=== PATIENT | male | born 1995 | race Caucasian/White ===

== ENCOUNTER → 2016-09-19 | Outpatient (CLI) | payer BC, OTHER | LOC: MRI 07:13 | DX: M23.91 Unspecified internal derangement of right knee (principal); M25.561 Pain in right knee ==

== ENCOUNTER 2016-11-17 06:08 | Day surgery (SDC) | payer BC, OTHER ==
[~2016-11-17] VITALS: Ht 177.8 cm; Wt 74.8 kg
--- NOTE | ~2016-11-17 | O ---
[facility] [place] [address] OPERATIVE REPORT Name: LALA SILVA Room #: DEP [facility].#: [id number] Admission: 11/17/16 Attend Phys: Lito Quijano MD Discharge: 11/17/16 Date of : 89 Report #: [id number] THIS REPORT FOR: //name// CC: Lito Quijano [facility] DATE OF SERVICE: 11/17/2016 SERVICE: Orthopedics. FACILITY: [facility]. SURGEON: Lito Quijano M.D. AUTOMOTIVE BRAKE ADJUSTER: None. PREOPERATIVE DIAGNOSES: 1. Right knee anterior cruciate ligament rupture. 2. Displaced bucket handle medial meniscus tear, right knee. 3. Radial tear, right lateral meniscus. POSTOPERATIVE DIAGNOSES: 1. Right knee anterior cruciate ligament rupture. 2. Displaced bucket handle medial meniscus tear, right knee. 3. Radial tear, right lateral meniscus. PROCEDURE: 1. Right knee anterior cruciate ligament reconstruction with quadriceps tendon autograft. 2. Right knee partial medial meniscectomy. 3. Right knee partial lateral meniscectomy. COMPLICATIONS: None. DRAINS: None. SPECIMENS: None. ANESTHESIA TYPE: General with single shot regional nerve block. FINDINGS: 1. Arthrex ACL fixation with cortical button on the femur and 11 x 28 mm interference screw on the tibia with a 4.75 mm SwiveLock for backup fixation. 2. Displaced contracted bucket handle medial meniscus tear, treated with resection as it was irreducible and was bowstring across the joint due to the contraction. Irreparable. Approximately 50% meniscus resected. [facility] [address] [place] [address] OPERATIVE REPORT Name: LALA SILVA Room #: DEP [facility]..#: [id number] Admission: 11/17/16 Attend Phys: Lito Quijano MD Discharge: 11/17/16 Date of : [birth year] Report #: [id number] 3. Partial thickness inner rim, white-white, radial oriented tear of the lateral meniscus, treated with resection. 5-10% of meniscus volume resected. 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 We discussed conservative and surgical treatment options as well as consideration of early versus later surgery as he had planned a study abroad, trip to [place] and was interested in doing that prior to surgery as he did not want to be postoperative in a foreign country. The risks, benefits, alternatives and indications for surgery were discussed with him in detail as well as in the presence of his mother and their questions were answered. The risks include but are not limited to pain, bleeding, infection, injury to nerves or blood vessels, persistent pain despite surgical intervention, failure of any repairs, reconstructions, progression of any preexisting chondral injury, stiffness, need for further surgery as well as complications related to anesthesia such as stroke, heart attack, pulmonary complications, thromboembolic disease and . Despite these risks, he wished to proceed. PROCEDURE IN DETAIL: After right lower extremity was correctly identified in the preoperative holding area as the operative extremity, the patient underwent placement of a single shot regional nerve block by anesthesia team and was then taken to the operating room and placed supine on operating table and general anesthesia was induced without complication. He was padded appropriately. Prophylactic antibiotics were administered at appropriate time. A tourniquet was applied to the right thigh and total tourniquet time was 120 minutes. Right lower extremity was prepped and draped in standard sterile fashion. Time-out procedure was performed. His examination did have positive pivot shift and a positive Reg. He did have full range of motion. A 3 cm longitudinal incision was made based over the superior pole of the patella and quadriceps tendon. Dissection was taken down to the quadriceps tendon, which was identified and visualized. He had a thick wide tendon and we were able to harvest an 11 mm rasp and the portals were established in standard fashion. Diagnostic arthroscopy revealed intact articular cartilage throughout. The ACL was chronically torn. The PCL was intact. The medial compartment was noted to have a displaced bucket handle upon placement of the scope into the joint. This was manipulated for a short period of time to assess the reducibility and I was able to get under the medial femoral condyle, but it appeared to be contracted due to the chronicity of the tear and in fact it was bowstring across the joint, was not going to be irreparable all the way to the posterior horn where that should have sit anatomically. For this reason, the meniscus was resected with a biter followed by a shaver leaving a residual of approximately 50% of the medial meniscus. The [address] [address] OPERATIVE REPORT Name: LALA SILVA Room #: DEP [facility] M.R.#: [id number] Admission: 11/17/16 Attend Phys: Lito Quijano MD Discharge: 11/17/16 Date of : 89 Report #: [id number] leg was placed in a [id number] position. The scope was placed in the lateral compartment. The articular cartilage was intact. There was a radial tear at the mid portion of the body of the lateral meniscus that did not extend into the vascularized zone and was treated with partial lateral meniscectomy with a biter followed by a shaver to complete the conjoint. The medial wall of the lateral femoral condyle within the notch was cleared of the soft tissue. The apex of the proximal cartilage was identified and the anatomic footprint was also identified. An 11 mm Arthrex FlipCutter was used to create a 25 mm socket and then a guide pin was utilized to create a tibial side socket in the anatomic footprint and the toes were felt to be in the proper position and then, the graft was passed into the femoral socket and seated securely all the way down to bone. The Arthrex cortical button was then passed over the top of the two labral tape sutures with a total of 4 tails, which were tied over the button securely with two knots. This provided a secure femoral sided fixation. The knee was taken through a range of motion to eliminate any creep and then, it was placed in extension and a reverse lock maneuver was performed and then, the 8 x 28 mm [employer] Arthrex interference screw was placed obtaining excellent fixation. The scope was then placed back into the knee to ensure that the graft was in proper position, well fixed and there was no penetration of the screw into the joint and then, the knee was placed back into extension and a 4.75 mm Arthrex SwiveLock was placed tensioning the 4 strands from the Y-shaped graft for backup fixation. The wounds were then thoroughly irrigated. This tourniquet was let down. The deep layers were closed with 0 Vicryl. The skin layer was closed with 2-0 Vicryl followed by running subcuticular and 3-0 Monocryl in the portals. Sterile dressing was applied followed by compression stocking. Plan will be weightbearing as tolerated and range of motion as tolerated. There were no complications. All counts were recorded as correct. <ELECTRONICALLY SIGNED> By: Lito Quijano MD 11/17/162021 [id number] Lito Quijano MD /nt
[2016-11-17 07:47] VITALS: BP 125/72
[2016-11-17 10:39] VITALS: BP 125/72
[2016-11-17 11:46] LABS: HIV-1 P24 AG Nonreactive (Nonreactive)
[2016-11-17 21:08] LABS: HBsAG-EMPLOYEE EXPOSURE Negative (Negative); HCV AB-EMPLOYEE EXPOSURE <0.1 (0.0-0.9)
== END 2016-11-17 12:00 | disposition home or self-care (01) ==
LOC: OR 06:08 → TBA 06:09 → OR 09:59
PROVIDERS: Specialist
DX: S83.511A Sprain of anterior cruciate ligament of right knee, initial encounter (principal); S83.211A Bucket-handle tear of medial meniscus, current injury, right knee, initial encounter; S83.281A Other tear of lateral meniscus, current injury, right knee, initial encounter; X58.XXXA Exposure to other specified factors, initial encounter; Y93.89 Activity, other specified; Y92.89 Other specified places as the place of occurrence of the external cause; Y99.8 Other external cause status
CPT/HCPCS: 50010; 50101; 50386; 50405; 51038; 51320; 52001; 52282; 53337; 54170; 55430; 56524; 56527; 56530; 62110; 62900; 65060; 70005